=== PATIENT | female | born 1975 | race African-American/Black ===

== ENCOUNTER 2016-07-22 11:00 | Emergency (ER) | payer BC ==
[~2016-07-22] VITALS: Ht 175.3 cm; Wt 112.5 kg
[~2016-07-22 11:00] MED LIST: ULTRAM 50MG TAB50 MG PO
[2016-07-22] MEDS ORDERED: NAPROSYN500 MG PO (12:31)
== END 2016-07-22 15:25 | disposition home or self-care (01) ==
LOC: ER 11:00
DX: M79.641 Pain in right hand (principal); F10.99 Alcohol use, unspecified with unspecified alcohol-induced disorder

== ENCOUNTER 2019-03-24 17:40 | Emergency (ER) | payer OTHER ==
[~2019-03-24] VITALS: Ht 175.3 cm; Wt 104.3 kg
[~2019-03-24 17:40] MED LIST changes: +IRON325 PO; +NAPROSYN500 MG PO
[2019-03-24 20:07] VITALS: BP 142/79
[2019-03-24] MEDS ORDERED: NORCO 10-325 T1 EACH PO (20:20)
[2019-03-24] MEDS ORDERED: MEDROLDOSEPACK PO (20:20)
[2019-03-24] MEDS ORDERED: CYCLOBENZAPRINE5 MG PO (20:20)
== END 2019-03-24 20:38 | disposition home or self-care (01) ==
LOC: ER 17:40
DX: M54.41 Lumbago with sciatica, right side (principal)

== ENCOUNTER 2019-11-19 10:18 | Emergency (ER) | payer BC ==
[~2019-11-19] VITALS: Ht 175.3 cm; Wt 111.1 kg
[~2019-11-19 10:18] MED LIST changes: +CYCLOBENZAPRINE5 MG PO; +MEDROLDOSEPACK PO; +NORCO 10-325 T1 EACH PO
[2019-11-19] MEDS ORDERED: ULTRAM 50MG TAB50 MG PO (11:41)
[2019-11-19 12:45] VITALS: BP 141/82
== END 2019-11-19 12:45 | disposition home or self-care (01) ==
LOC: ER 10:18
DX: M25.561 Pain in right knee (principal); M25.562 Pain in left knee